=== PATIENT | female | born 1995 | race Caucasian/White ===

== ENCOUNTER 2019-08-17 15:33 | Emergency (ER) | payer BC ==
[2019-08-17 15:41] VITALS: BP 127/81; PULSE 65; RESP 16; TEMP 98
[2019-08-17 16:16] LABS: Appearance,Urine Clear (Clear); Bacteria,Urine Occasional /hpf; Bilirubin,Urine Negative (Negative); Blood,Urine Negative (Negative); Color,Urine Light Yellow; Glucose,Urine (UA) Negative (Negative); Ketones,Urine Negative (Negative); Leukocyte Esterase,Urine Small (Negative); Nitrite,Urine Negative (Negative); PH, Urine 7.5 (5.0-8.0); Protein,Urine Negative (Negative); Squamous Epithelial Cell,Urine 9 /hpf (0-4); Urobilinogen,Urine <2.0 mg/dL (<2.0); WBC,Urine 1 /hpf (0-5)
--- NOTE | 2019-08-17 16:33 | ED ---
Abdominal Pain HPI - General Chief Complaint: Abdominal Pain Stated Complaint: Groin Pain, poss hernia Time Seen by Provider: 08/17/19 15:47 Source: patient, RN notes reviewed, old records reviewed Mode of arrival: ambulatory Limitations: no limitations - History of Present Illness Initial Comments: Patient is a 23 year old female with R groin swelling and lump for 2 weeks. She reports that she is concerned for hernia, as she noticed it while lifting at the gym. She denies abdominal pain, changes in urination or bowel habits. Patient reports no vaginal discharge. - Related Data Previous Rx's Medication Instructions Recorded Cephalexin [Keflex] 500 mg PO Q6HR 7 Days #28 cap 08/17/19 Fluconazole [Diflucan] 150 mg PO ONCE #3 tab 08/17/19 Mupirocin 2% Oint [Bactroban 2% 1 applic TOPICAL TID #60 gm 08/17/19 Oint] Allergies Allergy/AdvReac Type Severity Reaction Status Date / Time No Known Allergies Allergy Verified 08/17/19 15:41 Review of Systems ROS Statement: Those systems with pertinent positive or pertinent negative responses have been documented in the HPI. ROS Other: All systems not noted in ROS Statement are negative. Past Medical History Past Medical History: No Reported History, Unable to Obtain Additional Past Medical History / Comment(s): endometrosis, ovarina cyst Additional Past Surgical History / Comment(s): ovarian cyst surgery Past Psychological History: No Psychological Hx Reported Smoking Status: Never smoker Past Alcohol Use History: None Reported Past Drug Use History: Marijuana General Exam - General Exam Comments Initial Comments: 23 year old female, no distress. Limitations: no limitations General appearance: alert, in no apparent distress Head exam: Present: atraumatic, normocephalic, normal inspection Eye exam: Present: normal appearance, PERRL, EOMI. Absent: scleral icterus, conjunctival injection, periorbital swelling ENT exam: Present: normal exam, mucous membranes moist Neck exam: Present: normal inspection. Absent: tenderness, meningismus, lymphadenopathy Respiratory exam: Present: normal lung sounds bilaterally. Absent: respiratory distress, wheezes, rales, rhonchi, stridor Cardiovascular Exam: Present: regular rate, normal rhythm, normal heart sounds. Absent: systolic murmur, diastolic murmur, rubs, gallop, clicks GI/Abdominal exam: Present: soft, normal bowel sounds, other (tenderness over right inguinal region, palpable lymphnodes measuring 2cm. ). Absent: distended, tenderness, guarding, rebound, rigid Extremities exam: Present: normal inspection, full ROM, normal capillary refill. Absent: tenderness, pedal edema, joint swelling, calf tenderness Back exam: Present: normal inspection Neurological exam: Present: alert, oriented X3, CN II-XII intact Psychiatric exam: Present: normal affect, normal mood Skin exam: Present: warm, dry, intact, normal color. Absent: rash Course Vital Signs 08/17/19 08/17/19 15:39 17:30 Temperature 98.0 F 98.0 F Pulse Rate 65 65 Respiratory 16 16 Rate Blood Pressure 127/81 127/81 O2 Sat by Pulse 100 100 Oximetry Medical Decision Making - Medical Decision Making 23 year old female with R groin pain, and swelling. Patient has palpable lymphnodes, confirmed with US. Patient has no vaginal discharge. Patient has normal UA. She reports she has had recent ingrown hairs, and discussed likely inflammatory lymph nodes from ingrown hairs. Discussed treatment with keflex. Patient advsied to have follow up with PCP. - Lab Data Lab Results 08/17/19 08/17/19 Range/Units 16:00 16:00 Urine Color Light Yellow Urine Appearance Clear (Clear) Urine pH 7.5 (5.0-8.0) Ur Specific [place] 1.010 (1.001-1.035) Urine Protein Negative (Negative) Urine Glucose (UA) Negative (Negative) Urine Ketones Negative (Negative) Urine Blood Negative (Negative) Urine Nitrite Negative (Negative) Urine Bilirubin Negative (Negative) Urine Urobilinogen <2.0 (<2.0) mg/dL Ur Leukocyte Esterase Small H (Negative) Urine WBC 1 (0-5) /hpf Ur Squamous Epith Cells 9 H (0-4) /hpf Urine Bacteria Occasional H (None) /hpf Urine HCG, Qual Not Detected (Not Detectd) - Radiology Data Radiology results: report reviewed There is demonstrated normal large right inguinal lymp nodes. Measuring 1.9 cm by 1.5, and 1.4cm. Disposition Clinical Impression: Pelvic lymphadenopathy, History of ingrowing hair Disposition: HOME SELF-CARE Condition: Good Instructions (If sedation given, give patient instructions): Lymphadenopathy (ED), Folliculitis (ED) Additional Instructions: Patient has warm compresses over the ingrown hairs. Take the antibiotics as prescribed. Follow-up with your primary care doctor. Return to emergency department if any alarming signs or symptoms occur. Prescriptions: Mupirocin 2% Oint [Bactroban 2% Oint] 1 applic TOPICAL TID #60 gm Fluconazole [Diflucan] 150 mg PO ONCE #3 tab Cephalexin [Keflex] 500 mg PO Q6HR 7 Days #28 cap Is patient prescribed a controlled substance at d/c from ED?: No Referrals: Sofi Wu DO [Primary Care Provider] - 1-2 days Time of Disposition: 17:24
--- NOTE | 2019-08-17 17:00 | US ---
EXAMINATION TYPE: US groin RT DATE OF EXAM: 08/17/2019 COMPARISON: NONE CLINICAL HISTORY: Swelling, lymphadenopathy. Palpable noted by patient at medial right inguinal area x 1 week. Rt Groin US: couple of lymph nodes seen at palpable area with larger node = 1.9 x 1.5 x 1.4cm. IMPRESSION: There is demonstrated morphologically normal large right inguinal lymph nodes.
== END 2019-08-17 17:46 | disposition home or self-care (01) ==
LOC: EC 15:33
DX: R59.0 Localized enlarged lymph nodes (principal); Z87.2 Personal history of diseases of the skin and subcutaneous tissue
CPT/HCPCS: 81001; 81025; 99284